=== PATIENT | female | born 1965 | race Caucasian/White ===

== ENCOUNTER → 2020-02-27 11:33 | Outpatient (CLI) | payer BC, SELFPAY ==
--- NOTE | ~2020-02-27 | US_ITS ---
US abdomen complete DATE: 02/27/2020 12:17 INDICATION: Abdominal distention, reflux, belching, constipation TECHNIQUE: Real-time imaging of the abdomen, Doppler evaluation COMPARISON: 12/03/2017 abdominal ultrasound FINDINGS: No hepatic or pancreatic, splenic or renal space-occupying mass lesion is evident. No galls tones or gallbladder wall thickening or pericholecystic abnormal fluid collection. Negative sonograph ic Cuba's sign. The common bile duct measures 6 mm, which is within normal range. No renal mass lesion or hydronephrosis. IMPRESSION: Negative Reviewed, dictated and finalized at Location A. Reviewed, dictated and finalized at location B. IMPRESSION: Negative
== END ==
PROVIDERS: PCP Internal Medicine; Visit Provider Internal Medicine
DX: R14.0 Abdominal distension (gaseous) (principal)
CPT/HCPCS: 76700

== ENCOUNTER → 2020-03-03 14:52 | Outpatient (CLI) | payer BC, SELFPAY ==
--- NOTE | ~2020-03-03 | MM_ITS ---
EXAMINATION: MM screening [facility] BI w pallavi HISTORY: Screening mammogram TECHNIQUE: Craniocaudal and mediolateral oblique 3-D tomosynthesis images were obtained and synthetic 2-D images were generated. CAD analysis was submitted and interpreted. COMPARISON: 12/02/2017, 11/19/2016, 11/17/2015 BREAST PARENCHYMAL COMPOSITION: There are scattered areas of fibroglandular density. FINDINGS: There is no evidence of suspicious mass, calcification, or architectural distortion to sugg est malignancy in either breast. There has been no suspicious interval change. IMPRESSION: 1. No mammographic evidence of malignancy. 2. Recommend routine screening mammography in one year. BI-RADS Category 1: Negative Reviewed, dictated and finalized at location A.
== END ==
PROVIDERS: Visit Provider Obstetrics & Gynecology
DX: Z12.31 Encounter for screening mammogram for malignant neoplasm of breast (principal)
CPT/HCPCS: 77063; 77067

== ENCOUNTER → 2020-03-17 16:07 | Outpatient (CLI) | payer BC, SELFPAY ==
--- NOTE | ~2020-03-17 | XR_ITS ---
XR lumbar spine 2-3V 03/17/2020 16:20 Indication: Back pain Procedure: 3 views lumbar spine Comparison: 06/20/2012 Findings: Normal lumbar lordosis. Vertebral body heights are maintained. There is disc narrowing at a ll lumbar levels. There is mild facet hypertrophy at L5-S1. Pedicles intact. Sacral foramen are symme tric. Impression: 1: Mild lumbar spondylosis. Reviewed, dictated and finalized at location A. Impression: 1: Mild lumbar spondylosis.
== END ==
PROVIDERS: PCP Internal Medicine; Visit Provider Internal Medicine
DX: M47.896 Other spondylosis, lumbar region (principal)
CPT/HCPCS: 72100

== ENCOUNTER 2020-07-04 13:04 | Outpatient (CLI) | payer BC, SELFPAY ==
--- NOTE | ~2020-07-04 | CT_ITS ---
EXAMINATION: CT brain wo con EXAM DATE: 07/04/2020 14:11 INDICATION: S09.90XA - Unspecified injury of head, initial encounter. TECHNIQUE: Spiral CT of the head was performed without contrast. Axial, coronal and sagittal images were reviewed. The dose-length product (DLP) for this examination was 605.33 mGy-cm. The exposure w as tailored according to patient size, and iterative reconstruction (ASIR) was used as additional dos e reduction technique. There is no prior study for comparison. FINDINGS: There is no acute intraparenchymal hemorrhage. No evidence of intraparenchymal brain mass lesion. No evidence of acute infarction. There is no mass effect or midline shift. The ventricles are normal in size. There are no extra-axial collections. There are no acute calvarial fractures. T he orbits are unremarkable. Soft tissue is unremarkable. The visualized sinuses and mastoid air bambi ls are well aerated. IMPRESSION: 1. No acute intracranial findings. Reviewed, dictated and finalized at location B. CTICIDE MIXER
== END 2020-07-04 13:05 | disposition home or self-care (01) ==
PROVIDERS: PCP Internal Medicine; Visit Provider Physician Assistant
DX: S09.90XA Unspecified injury of head, initial encounter (principal); X58.XXXA Exposure to other specified factors, initial encounter
CPT/HCPCS: 70450

== ENCOUNTER 2020-08-19 10:20 | Outpatient (CLI) | payer BC, SELFPAY ==
--- NOTE | ~2020-08-19 | XR_ITS ---
EXAMINATION: XR hand LT 2V EXAM DATE: 08/19/2020 11:16 INDICATION: Multijoint pain. Looking for rheumatoid arthritis. TECHNIQUE: Frontal and lateral projections of the left hand. There is no prior study for comparison . FINDINGS: There is mild left hand polyarticular interphalangeal primary osteoarthritis. There is brianna re 1st carpometacarpal joint primary osteoarthritis. There are no bony erosions identified. There are no acute fractures or dislocations identified. There is no subcutaneous gas. The soft tissue is un remarkable. There are no radiopaque foreign bodies. IMPRESSION: Polyarticular left hand osteoarthritis. Reviewed, dictated and finalized at location B. CUTTER OPERATOR
--- NOTE | ~2020-08-19 | XR_ITS ---
EXAMINATION: XR knee RT 2V EXAM DATE: 08/19/2020 11:16 INDICATION: Multijoint pain. Looking for rheumatoid arthritis. TECHNIQUE: Frontal and lateral projections of the right knee. There is no prior study for compariso n. FINDINGS: There is mild right knee primary osteoarthritis. There are no acute fractures or dislocatio ns identified. There is no subcutaneous gas. The soft tissue is unremarkable. There are no radiop aque foreign bodies. No chondrocalcinosis. IMPRESSION: Mild right knee osteoarthritis. Reviewed, dictated and finalized at location B. RPRISE RESOURCE PLANNER
--- NOTE | ~2020-08-19 | XR_ITS ---
EXAMINATION: XR ankle RT 2V EXAM DATE: 08/19/2020 11:16 INDICATION: Multijoint pain. TECHNIQUE: Frontal and lateral projections of the right ankle. There is no prior study for comparis on. FINDINGS: There are no acute right ankle fractures or dislocations identified. There is no subcutane ous gas. The soft tissue is unremarkable. There are no radiopaque foreign bodies. The ankle morti se appears intact. IMPRESSION: 1. Unremarkable XR ankle RT 2V exam. Reviewed, dictated and finalized at location B. LE OPERATOR
--- NOTE | ~2020-08-19 | XR_ITS ---
EXAMINATION: XR shoulder LT min 2V EXAM DATE: 08/19/2020 11:16 INDICATION: Multijoint pain. Looking for rheumatoid arthritis. TECHNIQUE: Frontal, and axillary projections left shoulder. There is no prior study for comparison. FINDINGS: Small ossification identified between the humeral head and clavicle, probably calcific ten dinosis. There is moderate left acromioclavicular joint primary osteoarthritis. There are no acute fr actures or dislocations identified. There is no subcutaneous gas. The soft tissue is unremarkable. There are no radiopaque foreign bodies. IMPRESSION: 1. Moderate left acromioclavicular joint osteoarthritis. 2. Probable rotator cuff calcific tendinosis. Reviewed, dictated and finalized at location B. DRUMMER
--- NOTE | ~2020-08-19 | XR_ITS ---
EXAMINATION: XR foot RT 2V EXAM DATE: 08/19/2020 11:16 INDICATION: Multijoint pain. Looking for rheumatoid arthritis. TECHNIQUE: Frontal and lateral projections of the right foot. There is no prior study for compariso n. FINDINGS: There is moderate right 1st metatarsophalangeal joint primary osteoarthritis. There are no bony erosions identified. There is pes planus. There are no acute fractures or dislocations identifi ed. There is no subcutaneous gas. The soft tissue is unremarkable. There are no radiopaque foreig n bodies. IMPRESSION: 1. Moderate right 1st MTP osteoarthritis. 2. Pes planus. Reviewed, dictated and finalized at location B. C WEB DEVELOPER
--- NOTE | ~2020-08-19 | XR_ITS ---
EXAMINATION: XR wrist LT 2V EXAM DATE: 08/19/2020 11:16 INDICATION: Multijoint pain. Looking for rheumatoid arthritis. TECHNIQUE: Frontal and lateral projections of the left wrist. There is no prior study for compariso n. FINDINGS: There is severe 1st carpometacarpal joint primary osteoarthritis. There are no bony erosio ns identified. There are no acute fractures or dislocations identified. There is no subcutaneous gas . The soft tissue is unremarkable. There are no radiopaque foreign bodies. IMPRESSION: Severe left 1st CMC joint osteoarthritis. Reviewed, dictated and finalized at location B. ALLATION & MAINTENANCE EXECUTIVE
--- NOTE | ~2020-08-19 | XR_ITS ---
EXAMINATION: XR ankle LT 2V EXAM DATE: 08/19/2020 11:16 INDICATION: Multijoint pain. TECHNIQUE: Frontal and lateral projections of the left ankle. There is no prior study for compariso n. FINDINGS: There are no acute left ankle fractures or dislocations identified. There is no subcutaneo us gas. The soft tissue is unremarkable. There are no radiopaque foreign bodies. The ankle mortis e appears intact. IMPRESSION: 1. Unremarkable XR ankle LT 2V exam. Reviewed, dictated and finalized at location B. PATCHER
--- NOTE | ~2020-08-19 | XR_ITS ---
EXAMINATION: XR hip LT min 2V EXAM DATE: 08/19/2020 11:16 INDICATION: Multijoint pain. TECHNIQUE: Left hip frontal and frog-leg projections. There is no prior study for comparison. FINDINGS: There is left hip primary osteoarthritis. No radiographic evidence of avascular necrosis. T here are no acute fractures or dislocations identified. There is no subcutaneous gas. The soft tiss ue is unremarkable. There are no radiopaque foreign bodies. IMPRESSION: Mild left hip osteoarthritis. Reviewed, dictated and finalized at location B. R COATING MACHINE OPERATOR
--- NOTE | ~2020-08-19 | XR_ITS ---
EXAMINATION: XR foot LT 2V EXAM DATE: 08/19/2020 11:16 INDICATION: Multijoint pain. TECHNIQUE: Frontal and lateral projections of the left foot. There is no prior study for comparison . FINDINGS: There are no acute left foot fractures or dislocations identified. There is no subcutaneou s gas. The soft tissue is unremarkable. There are no radiopaque foreign bodies. There are no bony erosions identified. IMPRESSION: 1. Unremarkable XR foot LT 2V exam. Reviewed, dictated and finalized at location B. ISH LINGUIST
--- NOTE | ~2020-08-19 | XR_ITS ---
EXAMINATION: XR knee LT 2V EXAM DATE: 08/19/2020 11:16 INDICATION: Multijoint pain. TECHNIQUE: Frontal and lateral projections of the left knee. There is no prior study for comparison . FINDINGS: There is mild left knee primary osteoarthritis. There are no acute fractures or dislocation s identified. There is no subcutaneous gas. The soft tissue is unremarkable. There are no radiopa que foreign bodies. IMPRESSION: Mild left knee osteoarthritis. Reviewed, dictated and finalized at location B. STANT GOLF COURSE SUPERINTENDENT
--- NOTE | ~2020-08-19 | XR_ITS ---
EXAMINATION: XR wrist RT 2V EXAM DATE: 08/19/2020 11:16 INDICATION: Multiple joint pain, looking for rheumatoid arthritis. TECHNIQUE: Frontal and lateral projections of the right wrist. There are no prior studies for compar mario. FINDINGS: There are no bony erosions identified. There are no acute right wrist fractures or disloca tions identified. There is no subcutaneous gas. The soft tissue is unremarkable. There are no rad iopaque foreign bodies. There is moderate 1st carpometacarpal joint primary osteoarthritis. IMPRESSION: Moderate right 1st carpometacarpal joint osteoarthritis. Reviewed, dictated and finalized at location B. NGUAL ADMINISTRATIVE ASSISTANT
--- NOTE | ~2020-08-19 | XR_ITS ---
EXAMINATION: XR shoulder RT min 2V EXAM DATE: 08/19/2020 11:16 INDICATION: Multijoint pain. TECHNIQUE: Right shoulder frontal, axillary projections. There is no prior study for comparison. FINDINGS: There is mild to moderate right acromioclavicular joint primary osteoarthritis. There are n o acute fractures or dislocations identified. There is no subcutaneous gas. The soft tissue is unre markable. There are no radiopaque foreign bodies. IMPRESSION: Mild to moderate right acromioclavicular joint osteoarthritis. Reviewed, dictated and finalized at location B. EAR TECHNICIAN
--- NOTE | ~2020-08-19 | XR_ITS ---
EXAMINATION: XR hand RT 2V EXAM DATE: 08/19/2020 11:16 INDICATION: Multiple joint pain, looking for rheumatoid arthritis. TECHNIQUE: Frontal and lateral projections of the right hand. Comparison is made to prior examinatio n from 02/16/2018. FINDINGS: There are no bony erosions identified. There are no acute right hand fractures or dislocat ions identified. There is no subcutaneous gas. The soft tissue is unremarkable. There are no radi opaque foreign bodies. There is moderate 1st carpometacarpal joint primary osteoarthritis. There is otherwise mild polyarticular interphalangeal primary osteoarthritis. IMPRESSION: Right hand, wrist polyarticular osteoarthritis. Reviewed, dictated and finalized at location B. OR BUDGET ANALYST
--- NOTE | ~2020-08-19 | XR_ITS ---
EXAMINATION: XR hip RT min 2V EXAM DATE: 08/19/2020 11:16 INDICATION: Multijoint pain. TECHNIQUE: Right hip frontal and frog-leg projections. There is no prior study for comparison. FINDINGS: No evidence of right hip avascular necrosis. There is mild hip primary osteoarthritis. The re are no acute fractures or dislocations identified. There is no subcutaneous gas. The soft tissue is unremarkable. There are no radiopaque foreign bodies. IMPRESSION: Mild right hip osteoarthritis. Reviewed, dictated and finalized at location B. IGHTENER AND ALIGNER
[2020-08-19 11:14] LABS: Erythrocyte Sedimentation Rate 4 mm/hr (0-20)
[2020-08-19 11:16] LABS: Creatine Kinase 98 U/L (30-135); Magnesium 2.4 mg/dL (1.6-2.3)
[2020-08-20 11:01] LABS: CRP < 0.5 mg/dL (<1.0)
[2020-08-23 11:41] LABS: Anti Cyclic Citrullinated Pept <16 Units (<20)
== END 2020-08-19 10:21 | disposition home or self-care (01) ==
LOC: ANHLAB 10:22
PROVIDERS: PCP Internal Medicine; Visit Provider Internal Medicine Rheumatology
DX: D50.9 Iron deficiency anemia, unspecified (principal); R53.83 Other fatigue; M19.90 Unspecified osteoarthritis, unspecified site; M79.10 Myalgia, unspecified site; E83.42 Hypomagnesemia; M19.012 Primary osteoarthritis, left shoulder; M19.011 Primary osteoarthritis, right shoulder; M16.0 Bilateral primary osteoarthritis of hip; M17.0 Bilateral primary osteoarthritis of knee; M19.071 Primary osteoarthritis, right ankle and foot; M21.41 Flat foot [pes planus] (acquired), right foot; M19.042 Primary osteoarthritis, left hand; M19.032 Primary osteoarthritis, left wrist; M19.031 Primary osteoarthritis, right wrist
CPT/HCPCS: 36415; 73030; 73100; 73120; 73502; 73560; 73600; 73620; 82550; 82728; 83520; 83735; 84550; 85652; 86140; 86200

== ENCOUNTER → 2021-01-22 10:22 | Outpatient (CLI) | payer OTHER, SELFPAY ==
--- NOTE | ~2021-01-22 | US_ITS ---
EXAMINATION: US abdomen complete DATE: 01/22/2021 11:11 INDICATION: Abdominal distention. TECHNIQUE: Multiple grayscale and Doppler ultrasound images of the abdomen were obtained. COMPARISON: Ultrasound abdomen 02/27/2020 FINDINGS: The visualized portions of the head, body, and tail of the pancreas are normal. Abdominal a rosi is normal in caliber. Inferior vena cava is normal. The liver is normal without focal lesion. No liver surface nodularity. There is normal flow in main portal vein. The gallbladder is normal in siz e. No gallstones or gallbladder wall thickening. There is no sonographic Cuba sign. The common duct is normal and measures 5 mm. The kidneys are normal in size. The spleen is normal in size. IMPRESSION: 1. Normal complete abdomen ultrasound. Reviewed, dictated and finalized at location A.
== END ==
PROVIDERS: PCP Internal Medicine; Visit Provider Internal Medicine Gastroenterology
DX: R14.0 Abdominal distension (gaseous) (principal)
CPT/HCPCS: 76700

== ENCOUNTER → 2021-02-19 15:09 | Outpatient (CLI) | payer OTHER, SELFPAY ==
--- NOTE | ~2021-02-19 | MM_ITS ---
EXAMINATION: MM screening [facility] BI w pallavi HISTORY: Screening TECHNIQUE: Craniocaudal and mediolateral oblique 3-D tomosynthesis images were obtained and synthetic 2-D images were generated. CAD analysis was submitted and interpreted. COMPARISON: Comparison to multiple prior studies sequentially, with oldest reviewed study dated 09/2014. BREAST PARENCHYMAL COMPOSITION: There are scattered areas of fibroglandular density. FINDINGS: There is no evidence of suspicious mass, calcification, or architectural distortion to sugg est malignancy in either breast. There has been no suspicious interval change. IMPRESSION: 1. No mammographic evidence of malignancy. 2. Recommend routine screening mammography in one year. BI-RADS Category 1: Negative Reviewed, dictated and finalized at location A.
== END ==
PROVIDERS: PCP Internal Medicine; Visit Provider Obstetrics & Gynecology
DX: Z12.31 Encounter for screening mammogram for malignant neoplasm of breast (principal)
CPT/HCPCS: 77063; 77067

== ENCOUNTER → 2021-04-13 14:36 | Outpatient (CLI) | payer OTHER, SELFPAY ==
--- NOTE | ~2021-04-13 | XR_ITS ---
XR_CERV2-3V_CR DATE: 04/13/2021 14:50 INDICATION: Neck pain TECHNIQUE: AP, lateral, swimmer's, open-mouth views COMPARISON: None FINDINGS: C1 and C2 are normally aligned and the odontoid process is intact. No fracture or dislocation or locked facet or prevertebral soft tissue swelling. There is moderately severe degenerative disc disease at C5-6 and C6-7. Uncovertebral joint spurring i s noted in the lower cervical spine. IMPRESSION: Moderately severe degenerative disc disease at C5-6 and C6-7 Reviewed, dictated and finalized at Location A. Reviewed, dictated and finalized at location A.
== END ==
PROVIDERS: PCP Internal Medicine; Visit Provider Internal Medicine
DX: M50.323 Other cervical disc degeneration at C6-C7 level (principal)
CPT/HCPCS: 72040

== ENCOUNTER 2021-08-25 12:37 | Outpatient (RCR) | payer OTHER, SELFPAY ==
[2021-08-25 15:33] VITALS: BP 136/90; PULSE 76; RESP 20; TEMP 36.4; O2SAT 100
[2021-08-25 15:34] VITALS: BP 136/90; PULSE 76; RESP 20; TEMP 36.4; O2SAT 100
[2021-08-25] MEDS: diphenhydrAMINE HCl CAP 25 MG CAPSULE PO (15:37)
[2021-08-25] MEDS: FAMOTIDINE 20 MG TABLET PO (15:37)
[2021-08-25 16:29] VITALS: BP 139/78
== END 2021-08-25 17:00 ==
LOC: AMCINF 12:37
PROVIDERS: PCP Internal Medicine; Referring Provider Internal Medicine; Visit Provider Internal Medicine Hematology & Oncology
DX: U07.1 COVID-19 (principal)
CPT/HCPCS: A9270; M0243; Q0244

== ENCOUNTER 2022-10-30 09:14 | Emergency (ER) | payer OTHER, SELFPAY ==
[2022-10-30 09:36] VITALS: BP 119/70; PULSE 80; RESP 16; TEMP 36.2; O2SAT 100
--- NOTE | 2022-10-30 10:06 | ED.GENADULT ---
HPI - General Adult General Chief complaint: Upper Respiratory Infection Stated complaint: sorethroat Time Seen by Provider: 10/30/22 10:06 Source: patient Mode of arrival: ambulatory Limitations: no limitations History of Present Illness HPI narrative: 57-year-old female patient presents to the [facility] with complaints of sore throat and dental pain. Patient states that she does have a an abscess to to the left lower area that she was treated with clindamycin on and from October 06 to October 18. Patient does have an appointment with oral surgeon on November 15. Patient states she does have a script for additional clindamycin but wanted to come and get checked out today because she did want have to do another course of antibiotics. patient states she started having sore throat yesterday and thought she saw some white patches to the back of the throat. Patient states she has had some chills but denies fevers, abdominal pain, nausea, vomiting or diarrhea. Denies any headaches. Related Data Allergies Allergy/AdvReac Type Severity Reaction Status Date / Time amoxicillin AdvReac Mild Hives Verified 10/30/22 09:48 diphenhydramine AdvReac Mild Hives Verified 10/30/22 09:48 [From Benadryl] lidocaine AdvReac Mild rash Verified 10/30/22 09:48 Review of Systems Review of Systems: CONSTITUTIONAL: Denies fever, chills, or sweats. Positive body aches EYES: Denies visual changes, redness, or discharge. ENT: Denies rhinorrhea, congestion, positive sore throat, or otalgia. positive dental pain CARDIOVASCULAR: Denies chest pain, palpitations, or edema. RESPIRATORY: Denies cough or dyspnea. GASTROINTESTINAL: Denies abdominal pain, nausea, vomiting, or diarrhea. GENITOURINARY: Denies dysuria or hematuria. SKIN: Denies rash or itching. MUSCULOSKELETAL: Denies back pain, joint pain, or myalgia. NEUROLOGIC: Denies headache, numbness, or weakness. PSYCHIATRIC: Denies anxiety or depression. [facility] Past Medical History Medical History Bilateral hand pain Generalized osteoarthritis of multiple sites (~2016) Hypothyroidism Family History Family History Mother Family history of diabetes mellitus in first degree relative Family history of malignant neoplasm of ovary Family history of thyroid disease Family history of osteoporosis, Onset Age: 75 Family history of arthritis, Onset Age: 75 Patient's mother is Diabetes mellitus, Onset Age: 75 Sibling Family history of diabetes mellitus in first degree relative Family history of malignant neoplasm of ovary Family history of thyroid disease Family history of mental disorder Depression Family history of migraine headaches Family history of hepatitis Family history of arthritis Patient's sister is , Onset Age: 59 Father Family history of coronary artery disease Family history of thyroid disease Family history of cataracts Family history of heart disease in male family member before age 55 Family history of cardiovascular disease Social History Social History Smoking status: Never smoker Second hand tobacco smoke exposure: No Alcohol intake: never Substance use: never Lack of Transportation: No Lack of Food: Never True Current Housing: I Have Housing Concerned About Future Housing: No Difficulty Paying Gas/Electric Bills: No Difficulty Paying for Meds: No Currently Unemployed: No Education: Master's Degree or Higher Difficulty w/ Childcare or Family Care: Decline to Answer Living arrangements: alone Spiritual care concerns: No Comments At the time of my signature I agree with nursing past medical history, surgical, social, and family history. There is no relevant family history pertinent to the presenting complaint. Exam Narrative: GENERAL: Well-a
== END 2022-10-30 10:24 | disposition home or self-care (01) ==
PROVIDERS: Emergency Provider Nurse Practitioner Family; PCP Internal Medicine
DX: J02.9 Acute pharyngitis, unspecified (principal); K04.7 Periapical abscess without sinus; E03.9 Hypothyroidism, unspecified; M15.9 Polyosteoarthritis, unspecified
CPT/HCPCS: 87081; 87880; 99213; G0463

== ENCOUNTER 2023-11-28 07:44 | Outpatient (CLI) | payer OTHER, SELFPAY ==
--- NOTE | ~2023-11-28 | US_ITS ---
EXAMINATION: US soft tissue abdomen DATE: 11/28/2023 08:14 INDICATION: Generalized enlarged lymph nodes. TECHNIQUE: Multiple grayscale and Doppler ultrasound images of the abdomen were obtained. COMPARISON: None FINDINGS: In the right abdomen in the patient's area of concern, there is no abnormal mass. In the le ft abdomen in the patient's area of concern, there is a 12 mm subcutaneous mass that is slightly hype rechoic to other subcutaneous fat with similar echotexture. IMPRESSION: 1. No abnormal mass in the right abdomen in the patient's cancer. 2. 12 mm subcutaneous mass in left abdomen in the patient's area of concern, likely inflammation or a lipoma. Reviewed, dictated and finalized at location A. IMPRESSION: 1. No abnormal mass in the right abdomen in the patient's cancer. 2. 12 mm subcutaneous mass in left abdomen in the patient's area of concern, li kulwant inflammation or a lipoma.
== END 2023-11-28 07:45 ==
LOC: MICIMG 07:45
PROVIDERS: PCP Internal Medicine; Visit Provider Physician Assistant
DX: R19.02 Left upper quadrant abdominal swelling, mass and lump (principal)
CPT/HCPCS: 76705

== ENCOUNTER 2024-09-26 10:13 | Outpatient (CLI) | payer OTHER, SELFPAY ==
--- OUTSIDE RECORDS SUMMARY | 2024-09-26 11:19 | XMS_ITS | Referral Summary ---
Author Organization [facility] [address] Address [address] [place] [address] Care Team Providers Care Training Development Director Name Role Phone Grant Dickson MD Primary Care Provider [phone] Allergies Active Allergy Reactions Criticality Noted Date Comments Amoxicillin Rash Medium 06/08/2022 Diphenhydramine Rash Medium 06/08/2022 Medications cyclobenzaprine (FLEXERIL) 10 mg tablet TK 1 T PO HS PRF MUSCLE SPASM 06/11/2020 Active nitroglycerin (NITROSTAT) 0.4 mg SL tabletIndicatio ns:acute episode of anginal pain Place 1 tablet (0.4 mg total) under the tongue every 5 (five) minutes as needed for chest pain Max 3 doses. 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 Abnormal nuclear stress test 11/03/2017 Other chest pain 11/03/2017 Family history of premature CAD 11/03/2017 OROSCO (dyspnea on exertion) 11/03/2017 Chronic fatigue 11/03/2017 Social History Tobacco Use Types Packs/Day Years Used Date Smoking Tobacco: Never Smokeless Tobacco: Never Tobacco Cessation:Counseling Given: Not Answered Alcohol Use Standard Drinks/Week Comments No 0 (1 standard drink = 0.6 oz pur e alcohol) Personal Safety Answer Date Recorded Getting School Help Needed Not on file 08/08 Comments Unknown Sex and Gender Information Value Date Recorded Sex Assigned at Not on file Legal Sex Female 3:03 PM DURABLE MEDICAL EQUIPMENT TECHNICIAN Gender Identity Not on file Sexual Orientation Not on file Last Filed Vital Signs Vital Sign Reading Time Taken Comments Blood Pressure 118/74 04/17/2024 2:44 PM CDT Pulse 75 04/17/2024 2:44 PM CDT Temperature - - Respiratory Rate - - Oxygen Saturation 96% 04/17/2024 2:44 PM CDT Inhaled Oxygen Concentration - - Weight 97.5 kg (214 lb 14.4 oz) 04/17/2024 2:44 PM CDT Height 177.8 cm (5' 10 ) 04/17/2024 2:44 PM CDT Body Mass Index 30.83 04/17/2024 2:44 PM CDT Plan of Treatment Not on file Insurance [facility] Care Teams Training Development Director Relationship Specialty Start Date End Date Grant Dickson MD [address] [address] PCP - General Internal Medicine 01/28/20
--- OUTSIDE RECORDS SUMMARY | 2024-09-26 11:19 | XMS_ITS | Clinical Summary ---
Author Organization [facility] Address [address] [place] [id number] Care Team Providers Care Salesperson Automobiles Name Role Phone None, Provider MD Primary Care Provider Unavaila ble Social History Tobacco Use Types Packs/Day Years Used Date Smoking Tobacco: Never Assessed Comments Unknown Sex and Gender Information Value Date Recorded Sex Assigned at Not on file Legal Sex Female 2:29 PM CDT Gender Identity Not on file Sexual Orientation Not on file Plan of Treatment Health Maintenance Due Date Last Done Comments Cervical Cancer Screening Pa p Smear (Age 30 to 64) Every 3 Years 1963 Colorectal Cancer Screening Colonoscopy (10 Years) 1963 Annual Physical 1966 Hepatitis C 1981 DTaP, Tdap and Td Vaccines ( 1 - Tdap) 1982 Cervical Cancer Screening Pa p with HPV Testing (Age 30 to 64) Every 5 Years 1993 Cervical Cancer Screening with HPV 1993 Mammogram Screening 2003 Zoster Vaccines (1 of 2) 2013 COVID-19 Vaccine ( - 2023-2 5 season) 2024 Influenza Adult (#1) 2024 RSV Immunization or 60+ Years (1 - 1-dose 75+ series) 2038 Meningococcal B Vaccine Aged Out No l onger eligible based on patient's age to complete this topic Meningococcal Vaccine Aged Out No kayley emily eligible based on patient's age to complete this topic Pneumococcal Vaccine: Pediat rics (0 to 5 Years) and At-Risk Patients (6 to 64 Years) Aged Out No longer eligible b ased on patient's age to complete this topic RSV Immunizations Under 20 Months Aged Out No longer eligible based on patient's age to complete this topic Insurance [employer] [facility] Care Teams Salesperson Automobiles Relationship Specialty Start Date End Date None, Provider, PCP - General UNKNOWN PHYSICIAN SPECIALTY 06/01/24
--- OUTSIDE RECORDS SUMMARY | 2024-09-26 11:19 | XMS_ITS | Clinical Summary ---
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 Family History Medical History Relation Name Comments Coronary artery disease Father Hypotension Father Ovarian cancer Mother Coronary aneurysm Sister Anay Ovarian cancer Sister Anay Relation Name Status Comments Father (Age 87) Mother (Age 75) Sister Anay (Age 59) Social History Tobacco Use Types Packs/Day Years [...] on file Legal Sex Female 3:03 PM AGR[employer]Y INTERNS[employer]IP Gender Identity Not on file Sexual Orientation Not on file Obstetrics History Last Filed Vital Signs Vital Sign Reading [...] 04/17/2024 2:44 PM CDT Plan of Treatment Health Maintenance Due Date Last Done Comments Breast Cancer Screening-Mammogram 1965 Cervical Cancer Screening 1965 Colon Cancer Screening-Colonoscopy 1965 Depression Screening 1965 Hepatitis C Screening 1965 DTaP/Tdap/Td Vaccine (1 - Tdap) 1974 Hepatitis B Screening 1981 Regular Well Visit/Exam 18-64 1981 Zoster Vaccine (1 of 2) 2013 Influenza Vaccine (#1) 2024 Pneumococcal vaccine <65 Aged Out No longer eligible based on patient's age to complete this topic [facility] Care Teams Hydrogen Plant Operator Relationship Specialty Start Date End Date Grant Dickson MD [address] [id number] PCP - General Internal Medicine 01/28/20
== END 2024-09-26 10:14 | disposition home or self-care (01) ==
LOC: ANHLAB 10:15
PROVIDERS: PCP Internal Medicine; Visit Provider Internal Medicine
DX: J02.9 Acute pharyngitis, unspecified (principal)
CPT/HCPCS: 87070

== ENCOUNTER 2024-10-23 09:52 | Outpatient (CLI) | payer OTHER, SELFPAY | END 2024-10-23 09:53 | disposition home or self-care (01) | LOC: ANHAUDIO 09:52 | PROVIDERS: PCP Internal Medicine; Visit Provider Otolaryngology | DX: H93.13 Tinnitus, bilateral (principal); H90.3 Sensorineural hearing loss, bilateral; H73.891 Other specified disorders of tympanic membrane, right ear; H74.8X1 Other specified disorders of right middle ear and mastoid | CPT/HCPCS: 92557; 92567 ==

== ENCOUNTER 2024-11-02 10:02 | Outpatient (CLI) | payer OTHER, SELFPAY ==
--- NOTE | ~2024-11-02 | CT_ITS ---
EXAMINATION: CT soft tissue neck wo con DATE: 11/02/2024 10:20 INDICATION: Unspecified hearing loss, bilateral. TECHNIQUE: Computed tomography (CT) of the neck was performed without intravenous contrast. Automated exposure control and iterative reconstruction technique were employed. The dose-length product was 4 21.67 mGy-cm. COMPARISON: Head CT 07/04/2020 FINDINGS: There are likely changes of ocular lens replacement surgeries. Right maxillary sinus is com pletely opacified. The temporal bones are normal, but resolution is lower with this exam than with a temporal bone CT. The mastoid air cells are normal. There are no pathologically enlarged lymph nodes. There is severe cervical spondylosis. IMPRESSION: 1. No etiology for the patient's symptoms. Reviewed, dictated and finalized at location L.
== END 2024-11-02 10:03 | disposition home or self-care (01) ==
LOC: MICIMG 10:03
PROVIDERS: PCP Internal Medicine; Visit Provider Otolaryngology
DX: R22.0 Localized swelling, mass and lump, head (principal); K14.8 Other diseases of tongue; H91.93 Unspecified hearing loss, bilateral
CPT/HCPCS: 70490

== ENCOUNTER 2024-12-14 07:46 | Outpatient (CLI) | payer OTHER, SELFPAY ==
--- OUTSIDE RECORDS SUMMARY | 2024-12-14 07:49 | XMS_ITS | Patient Health Record ---
Author Organization [facility] [employer] [place] ([address]) Address [address] [place] [address] Care Team Providers Care Highway Truck Driver Name Role Phone YessiNiteshGrant Primary Care Provider Unavailab le Ramonita Mata Unavailable [phone] [facility], Provider Unavailable Unavailab le Allergies Allergen (clinical drug ingredient) Drug/Non Drug Allergy documented on EMR Reaction Allergy Type Onset Date Status amoxicillin Amoxicillin rash as child Drug Allergy Active Benadryl Allergy rapid heart rate Drug Allergy Active Reason For Referral No Information Medications Medication SIG (Take, Route, Frequency, Duration) Notes Start Date End Date Status LORazepam 0.5 MG for 30 Act reta CETIRIZINE HYDROCHLORIDE 10 mg 1 tab(s) orally bid 06/08/2022 Active FAMOTIDINE 40 mg 1 tab(s) orally bid 06/08/2022 Active HYDROXYCHLOROQUINE 200 mg 1 tab(s) orall y once a day for 30 day(s) 06/08/2022 Active BUSPIRONE 5 mg 1 tab(s) orally 2 times a day for 30 day(s) 06/08/2022 Not-Taking Cetirizine HCl 10 MG 1 tab(s) orally bid Active LORAZEPAM 0.5 mg for 30 Act reta Famotidine 40 MG 1 tab(s) orally bid 06/08/2022 Active Hydroxychloroquine Sulfate 200 MG 1 tab(s) orally once a day for 30 day(s) 06/08/2022 Active busPIRone HCl 5 MG 1 tab(s) orally 2 times a day for 30 day(s) 06/08/2022 Not-Taking Social History Tobacco Use: Social History Observation Description Date Details (start date - stop date) Never Smoker NA - NA Smoking Smart Form: Question Answer Notes Are you a: never smoker Problems Problem Type SNOMED Code ICD Code Onset Dates Problem Status W/U Status Risk Notes Problem Allergy to penicillin (43312262) Allergy status to penicillin (Z88.0) Active confirmed Problem Anxiety disorder (130678211) Anxiety disorder, unspecified (F41.9) Active confirmed Problem Chronic rhinitis (69825053) Chronic rhinitis (J31.0) Active confirmed Problem Urticaria (07643190) Urticaria, unspecified (L50.9) Active confirmed Problem Food allergy (632649095) Allergy to other foods (Z91.018) Active confirmed Problem Allergy to bee venom (097039788) Bee allergy status (Z91.030) Active confirmed Encounters Encounter Location Date Provider Diagnosis [address] [address] 02/04/2024 Provider Messi Urticaria, unspecified L50.9 Assessments Encounter Date Diagnosis (ICD Code) Assessment Notes Treatment Notes Treatment Clinical Notes Section Notes 02/04/2024 Urticaria, unspecified (ICD-10 - L50.9) Plan Of Treatment No Information Insurance Providers Payer Name Payer Address Payer Phone Subscriber Number Group Number Insured Name Patient Relationship to Insured Coverage Start Date Coverage End Date Aetna Choice POS II [address] [place] [address] [id number] Mayra Michael Self - patient is the insured Medical (General) History Medical History History ICD Code Anxiety disorder, unspecified F41.9 Surgical History Surgery Date(Month/Year) D & C polyp removal
--- OUTSIDE RECORDS SUMMARY | 2024-12-14 07:49 | XMS_ITS | Clinical Summary ---
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
--- OUTSIDE RECORDS SUMMARY | 2024-12-14 07:49 | XMS_ITS ---
Author Organization [facility] [place] ([address]) Address [address] [place] [address] Care Team Providers Care Washing Machine Operator Name Role Phone Grant Dickson Primary Care Provider Unavailab le Ramonita Mata Unavailable [phone] ZZ-Migration, Provider Unavailable Unavailab le Allergies Allergen (clinical drug ingredient) Drug/Non Drug Allergy documented on EMR Reaction Allergy Type Onset Date Status amoxicillin Amoxicillin rash as child Drug Allergy Active Benadryl Allergy rapid heart rate Drug Allergy Active REASON FOR VISIT [facility] To [facility] Conversion Encounter Medications Medication SIG (Take, Route, Frequency, Duration) Notes Start Date End Date Status LORazepam 0.5 MG for 30 Act reta Cetirizine HCl 10 MG 1 tab(s) orally bid 2 Active Famotidine 40 MG 1 tab(s) orally bid 06/08/2022 Active Hydroxychloroquine Sulfate 200 MG 1 tab(s) orally once a day for 30 day(s) 06/08/2022 Active busPIRone HCl 5 MG 1 tab(s) orally 2 times a day for 30 day(s) 06/08/2022 Not-Taking Encounters Encounter Location Date Provider Diagnosis [facility] - [place] [address] 02/04/2024 Provider ZZ-Migration Urticaria, unspecified L50.9 Assessments Encounter Date Diagnosis (ICD Code) Assessment Notes Treatment Notes Treatment Clinical Notes Section Notes 02/04/2024 Urticaria, unspecified (ICD-10 - L50.9) Plan Of Treatment Medication Medication Name Sig Start Date Stop Date Notes Cetirizine HCl 10 MG 1 tab(s) orally bid 06/08/2022 Famotidine 40 MG 1 tab(s) orally bid 06/08/2022 Progress Notes * Mayra MICHAELDOB: 3 (59 yo F)Acc No.[id number]:02/04/2024 Patient: Mayra PARRA Provider: Lashell Sutherland :1965 A ge:58 Y S ex:Female Date:02/04/2024 Address:[address] [place], [place] [id number] Pcp:Grant Dickson Subjective: * Chief Complaints: * 1 . [facility] To [facility] Conversion Encounter. * Medical History: * Medications: T aking LORazepam 0.5 MG Tablet , Taking Hydroxychloroquine Sulfate 200 MG Tablet 1 tab(s) orally once a day , Not-Taking/PRN busPIRone HCl 5 MG Tablet 1 tab(s) orally 2 times a day * Allergies: A moxicillin: rash as child, Benadryl Allergy: rapid heart rate . Objective: * Vitals: Assessment: * Assessment: 1. U rticaria, unspecified - L50.9 (Primary) Plan: * Treatment: * Billing Information: * Visit Code: * Procedure Codes: * Electronic signature of Najma TORRES-Migration on 12/14/2024 at 07:49 AM CDT Sign off status: Pending * Provider: Lashell Sutherland Date: 02/04/2024 Generated for Jacinta velez/Cami/Ty on: 12/14/2024 07:49 AM CDT
--- OUTSIDE RECORDS SUMMARY | 2024-12-14 07:49 | XMS_ITS | Referral Summary ---
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
--- OUTSIDE RECORDS SUMMARY | 2024-12-14 07:50 | XMS_ITS | Clinical Summary ---
Author Organization [facility] Address [address] [place] [address] Care Team Providers Care Cement Breaker Name Role Phone None, Provider MD Primary [...] Screening with HPV 1993 Mammogram Screening 2003 Pneumococcal Vaccine: 50+ Ye ars (1 of 1 - PCV) 2013 Zoster Vaccines (1 of 2) 2013 COVID-19 Vaccine ( - 2023-2 5 season) 2024 RSV Immunization or 60+ Years (1 [...] age to complete this topic Insurance [facility]NA [facility] Care Teams Cement Breaker Relationship Specialty Start Date End Date None, Provider, MD PCP - General UNKNOWN PHYSICIAN SPECIALTY 06/01/24
== END 2024-12-14 07:47 | disposition home or self-care (01) ==
LOC: ANHAUDASC 07:47
PROVIDERS: PCP Internal Medicine; Visit Provider Otolaryngology
DX: H93.13 Tinnitus, bilateral (principal); H90.3 Sensorineural hearing loss, bilateral; H73.892 Other specified disorders of tympanic membrane, left ear; H74.8X1 Other specified disorders of right middle ear and mastoid; H74.11 Adhesive right middle ear disease; R42 Dizziness and giddiness; R22.0 Localized swelling, mass and lump, head; K14.8 Other diseases of tongue
CPT/HCPCS: 92557; 92567

== ENCOUNTER 2024-12-26 10:43 | Outpatient (CLI) | payer OTHER, SELFPAY ==
--- NOTE | ~2024-12-26 | CT_ITS ---
CT sinus wo con Ordering provider: Dave Reed MD History: . J32.9 - Chronic sinusitis, unspecified . Comparison: None. Technique: Thin slice Scans CT of the paranasal sinuses was performed with coronal and sagittal refor matted images. No IV contrast. . Automated exposure control and iterative reconstruction technique w ere employed. The dose-length product was 277.35 mGy-cm. Findings: NASAL SEPTUM: midline. OSTEOMEATAL UNITS: Patent on the left side. Obliterated on the right side. NASAL TURBINATES AND NASOPHARYNX: Normal. PARANASAL SINUSES: right maxillary sinus disease. VISUALIZED MASTOIDS: Normal as visualized. BONES: Normal. SUPERFICIAL SOFT TISSUES/VISUALIZED BRAIN PARENCHYMA: Normal. IMPRESSION: Right maxillary sinus disease. Obliterated right ostiomeatal complex. Reviewed, dictated and finalized at location A.
== END 2024-12-26 10:44 | disposition home or self-care (01) ==
LOC: MICIMG 10:43
PROVIDERS: PCP Internal Medicine; Visit Provider Otolaryngology
DX: J32.0 Chronic maxillary sinusitis (principal)
CPT/HCPCS: 70486

== ENCOUNTER 2025-01-28 01:31 | Day surgery (SDC) | payer OTHER, SELFPAY ==
[2025-01-21 15:26] VITALS: BMI 30.3
--- NOTE | 2025-01-21 15:40 | PC.NURSE ---
Report to the Outpatient Waiting Room, entrance under the green pavilion located off [facility], at time ___06:30am____ on date _01/28/25 . Planned Procedure Time: __08:30am .? Time changes happen often and if your time is changed the preop area will call you the afternoon before. - You and your visitor will be asked to self-screen and do not enter if you have any COVID symptoms. Please call surgeon if you need to reschedule. - A mask is optional within the hospital at this time. Patients may have clear liquids (water, carbonated beverages, clear teas, apple juice) until 3 hours prior to surgery with a maximum of 20 ounces. - No food from midnight until time of surgery and no smoking, or chewing tobacco (or any form of nicotine). No chewing gum, candy or mints. (05:30AM) Take only the following medications with a SIP of water on the morning of surgery: ___Meclizine if needed DO NOT STOP ANY OF YOUR OTHER PRESCRIPTION MEDICATIONS PRIOR TO SURGERY EXCEPT THE FOLLOWING Hold all vitamins and supplements for 3 days per anesthesiologist. Date to last dose is 01/24/25 Medications to discontinue per physician __None Date to take last dose None Please no make-up, nail ecuadorean, hairspray, perfume, deodorant, or body powder the day of surgery.? No jewelry (including any body piercings) or valuables the day of surgery, leave them at home.? Please take a shower or bath the night before, or the morning of, surgery with an antibacterial soap.? Wear comfortable, loose fitting clothing.? - Jewelry must be removed prior to entering the operating room.? Rings and piercings that are not removed may be cut off. - The hospital will not accept responsibility for valuables.? - Please leave all valuables, including medications, at home the day of surgery. If you are going home after surgery, a licensed wrecker driver must drive you home.? - NO public transportation without another adult if you receive anesthesia. - We recommend that an adult stay with you for 24 hours following discharge. - We also recommend that you do not drive, make important decision, drink alcoholic beverages, or take any drugs that were not prescribed by your health care provider for at least 24 hours after your discharge time. Follow any additional instructions given to you from your surgeon. Telephone instructions given to _Patient and asked if any additional questions and then verbalized understanding. Patient advised to call surgeon office or pre surgery nurse liaison [phone] if any additional questions.
[2025-01-28] VITALS (9 sets, daily range): BP systolic 109–149; BP diastolic 68–84; PULSE 60–68; RESP 12–14; TEMP 36.3–36.9; O2SAT 100; BMI 30.7
--- OUTSIDE RECORDS SUMMARY | 2025-01-28 01:34 | XMS_ITS | Patient Health Record ---
Author Organization [facility] [employer] [place] ([address]) Address [address] [place] [address] Care Team Providers Care Inside Sales Agent Name Role Phone YessiNiteshGrant Primary Care Provider Unavailab le Ramonita Mata Unavailable [phone] ZZ-Migration, Provider Unavailable Unavailab le Allergies Allergen [...] Status Risk Notes Problem Allergy to penicillin (10381972) Allergy status to penicillin (Z88.0) Active confirmed Problem Anxiety disorder (456516328) Anxiety disorder, unspecified (F41.9) Active confirmed Problem Chronic rhinitis (96221210) Chronic rhinitis (J31.0) Active confirmed Problem Urticaria (57999430) Urticaria, unspecified (L50.9) Active confirmed Problem Food allergy (490256944) Allergy to other foods (Z91.018) Active confirmed Problem Allergy to bee venom (937333327) Bee allergy status (Z91.030) Active confirmed Encounters Encounter Location Date Provider Diagnosis [address] [address] 02/04/2024 Provider Messi Urticaria, unspecified L50.9 Assessments Encounter Date Diagnosis (ICD Code) Assessment Notes Treatment Notes Treatment Clinical Notes Section Notes 02/04/2024 Urticaria, unspecified (ICD-10 - L50.9) Plan Of Treatment No Information Insurance Providers Payer Name Payer Address Payer Phone Subscriber Number Group Number Insured Name Patient Relationship to Insured Coverage Start Date Coverage End Date Aetna Choice POS II [address] [place] [address] [id number] Mayra Michael Self - patient is the insured Medical (General) History Medical History History ICD Code Anxiety disorder, unspecified F41.9 Surgical History Surgery Date(Month/Year) D & C polyp removal
--- OUTSIDE RECORDS SUMMARY | 2025-01-28 01:34 | XMS_ITS ---
Author Organization Replaced By [facility] [place] ([address]) Address [address] [place] [address] Care Team Providers Care Painter Mirror Name Role Phone Grant Dickson Primary Care Provider Unavailab le Ramonita Mata Unavailable [phone] [employer]-Migration, Provider Unavailable Unavailab le Allergies Allergen (clinical drug ingredient) Drug/Non Drug Allergy documented on EMR Reaction Allergy Type Onset Date Status amoxicillin Amoxicillin rash as child Drug Allergy Active Benadryl Allergy rapid heart rate Drug Allergy Active REASON FOR VISIT [facility] To [facility] Conversion Encounter Medications Medication SIG (Take, [...] Encounter Location Date Provider Diagnosis [facility] [place] [address] 02/04/2024 Provider ZZ-Migration Urticaria, unspecified L50.9 Assessments [...] * Mayra MICHAELDOB: 3 (59 yo F)Acc No.[id number]:02/04/2024 Patient: Mayra PARRA Provider: Lashell Sutherland :1965 A ge:58 Y S ex:Female Date:02/04/2024 Address:[address] [place], [place] [id number] Pcp:Grant Dickson Subjective: * Chief Complaints: * 1 . [facility] To [facility] Conversion Encounter. * Medical History: * [...] * Electronic signature of Najma TORRES-Migration on 01/28/2025 at 01:33 AM CDT Sign off status: Pending * Provider: Lashell Sutherland Date: 02/04/2024 Generated for Jacinta velez/Cami/yT on: 01/28/2025 01:33 AM CDT
--- OUTSIDE RECORDS SUMMARY | 2025-01-28 01:34 | XMS_ITS | Referral Summary ---
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
--- OUTSIDE RECORDS SUMMARY | 2025-01-28 01:34 | XMS_ITS | Clinical Summary ---
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
[2025-01-28] MEDS: ACETAMINOPHEN 500 MG TABLET 1000 MG PO (06:49)
[2025-01-28] MEDS: LACTATED RINGERS 1,000 ML 30 ML IV CONT ×2 (07:00→09:40)
--- NOTE | 2025-01-28 07:00 | P.PNAN_ITS ---
Anes - Initial Pre Proc Eval Procedure: Operation Date: 01/28/25 08:30 Proposed Procedures p Image Guided Right Sided Maxillary Antrostomy - Dave Reed MD s Possible Endoscopic Assisted Septoplasty - Dave Reed MD Date/Time: 01/28/25 07:00 Surgeon: Dave Reed MD Pre Op Diagnosis: chronic sinusitis, chronic serous otitis media Patient Data Age: 59 Gender: F Height: 1.78 m Weight: 96 kg Allergies Allergy/AdvReac Type Severity Reaction Status Date / Time amoxicillin AdvReac Mild Hives Verified 01/21/25 15:23 diphenhydramine (From AdvReac Mild Hives Verified 01/21/25 15:23 Benadryl) lidocaine AdvReac Mild rash Verified 01/21/25 15:23 Home Medications ?Medication ?Instructions ?Recorded ?Confirmed ?Type meclizine 25 mg tablet 25 mg PO TID PRN vertigo #30 tabs 11/12/24 01/21/25 Rx Patient hx anesthesia problems: none Family hx anesthesia problems: none Results Review: All pre-operative results and documents have been reviewed as part of the pre- operative evaluation. [facility] Past Medical History Medical History Bilateral hand pain Generalized osteoarthritis of multiple sites (~2015) Hypothyroidism Surgical History Surgical History No pertinent past surgical history Family History Family History Mother Family history of diabetes mellitus in first degree relative Family history of malignant neoplasm of ovary Family history of thyroid disease Family history of osteoporosis, Onset Age: 75 Family history of arthritis, Onset Age: 75 Patient's mother is Diabetes mellitus, Onset Age: 75 Sibling Family history of diabetes mellitus in first degree relative Family history of malignant neoplasm of ovary Family history of thyroid disease Family history of mental disorder Depression Family history of migraine headaches Family history of hepatitis Family history of arthritis Patient's sister is , Onset Age: 59 Father Family history of coronary artery disease Family history of thyroid disease Family history of cataracts Family history of heart disease in male family member before age 55 Family history of cardiovascular disease Social History Social History Smoking status: Never smoker Second hand tobacco smoke exposure: No Alcohol intake: never Substance use: never Do You Feel Safe in your Home?: Yes Lack of Transportation: No Lack of Food: Never True Current Housing: I Have Housing Concerned About Future Housing: No Difficulty Paying Gas/Electric Bills: No Difficulty Paying for Meds: No Currently Unemployed: No Education: Master's Degree or Higher Difficulty w/ Childcare or Family Care: Decline to Answer Living arrangements: alone Spiritual care concerns: No Anes - Eval Final PreProcedure Day of Procedure 01/28/25 07:00 Patient weight: obese Lungs: clear to auscultation Airway: Mallampati scale class II Neurological: alert and oriented Last oral intake: >/= 8 hours ASA classification: II Emergent: no Anesthetic plan: proceed Anesthesia type and monitoring: general ETT and standard monitoring Results Review: All pre-operative results and documents have been reviewed as part of the pre- operative evaluation. Informed Consent: The patient's anesthetic plan and its attendant risks and benefits were discussed with the patient/family/POA. Questions were solicited and answers provided to the satisfaction of the patient/family/POA.
--- NOTE | 2025-01-28 07:17 | WPDHPUPDATE1 ---
History and Physical Update Update Date/Time: 01/28/25 07:17 History and Physical has been reviewed, including an updated exam of the patient. There are NO changes in the patient's condition. Risks, benefits, and alternatives have been discussed and questions answered. Patient agrees to proceed with procedure.
--- NOTE | 2025-01-28 08:30 | PM.IMHP ---
H&P: HPI History of Present Illness Date/Time: 01/28/25 08:30 Chief Complaint: Right sided silent sinus syndrome/disease max. See previous note. Review of Systems Review of Systems: All systems reviewed & are unremarkable except as noted in HPI and below PMFSH Past Medical History Medical History Bilateral hand pain Generalized osteoarthritis of multiple sites (~2015) Hypothyroidism Surgical History Surgical History No pertinent past surgical history Family History Family History Mother Family history of diabetes mellitus in first degree relative Family history of malignant neoplasm of ovary Family history of thyroid disease Family history of osteoporosis, Onset Age: 75 Family history of arthritis, Onset Age: 75 Patient's mother is Diabetes mellitus, Onset Age: 75 Sibling Family history of diabetes mellitus in first degree relative Family history of malignant neoplasm of ovary Family history of thyroid disease Family history of mental disorder Depression Family history of migraine headaches Family history of hepatitis Family history of arthritis Patient's sister is , Onset Age: 59 Father Family history of coronary artery disease Family history of thyroid disease Family history of cataracts Family history of heart disease in male family member before age 55 Family history of cardiovascular disease Social History Social History Smoking status: Never smoker Second hand tobacco smoke exposure: No Alcohol intake: never Substance use: never Do You Feel Safe in your Home?: Yes Lack of Transportation: No Lack of Food: Never True Current Housing: I Have Housing Concerned About Future Housing: No Difficulty Paying Gas/Electric Bills: No Difficulty Paying for Meds: No Currently Unemployed: No Education: Master's Degree or Higher Difficulty w/ Childcare or Family Care: Decline to Answer Living arrangements: alone Spiritual care concerns: No Meds Home Medications and Allergies Home Medications ?Medication ?Instructions ?Recorded ?Confirmed ?Type meclizine 25 mg tablet 25 mg PO TID PRN vertigo #30 tabs 11/12/24 01/21/25 Rx Allergies Allergy/AdvReac Type Severity Reaction Status Date / Time amoxicillin AdvReac Mild Hives Verified 01/28/25 07:50 diphenhydramine (From AdvReac Mild Hives Verified 01/28/25 07:50 Benadryl) lidocaine AdvReac Mild rash Verified 01/28/25 07:50 Vital Signs Vital Signs - 24 hr 01/28/25 06:30 Temperature 36.9 C Pulse Rate 64 Respiratory Rate 14 Blood Pressure 137/68 Pulse Oximetry 100 Oxygen Delivery Room Air Exam Narrative: Normal, see previous note. Assessment and Plan Assessment and plan (1) Chronic sinusitis: Code(s): J32.9 - Chronic sinusitis, unspecified Status: Acute Assessment and Plan: See previous documentation. Right max ess, possible septo. (2) Silent sinus syndrome: Code(s): J34.89 - Other specified disorders of nose and nasal sinuses Status: Acute
[2025-01-28] MEDS: OXYMETAZOLINE HCL 0.05% NAS 15 ML BTL (*BKC) 1 SPRAY NASAL (08:54)
[2025-01-28] MEDS: ceFAZolin 2 GM/D5W 50 ML 2 GM/50 ML BAG IVPB (08:55)
--- NOTE | 2025-01-28 09:53 | P.OP_ITS ---
Procedure Note - Detailed Date of Procedure 01/28/25 Pre-op Diagnosis chronic sinusitis, chronic serous otitis media Post-op Diagnosis Same Procedure Performed Right-sided image guided endoscopic maxillary antrostomy with tissue removed meenu fl[place]. Surgeon Dave Reed MD Anesthesia General Indications See above Findings Incredibly foot sunken and right max likely as able to peel it out did not need to do the septoplasty. In touch of edematous polypoid tissue cleaned out of the maxillary sinus as well. Description of Procedure Patient identified consent verified the preoperative holding area. Patient was brought to the operating. Time-out performed. General anesthesia was induced and endotracheal tube secured airway. Patient prepped draped position procedure confirmed 2nd time-out performed image guidance initiated. 0 degree endoscope utilized large swell body was able to medialized the right turbinate and performed the procedure. Double ball tip probe was utilized to get into the sinus posteriorly I worked my way anteriorly was able to get the uncinate out of the sinus itself and remove it with combination of backbiter straight through cut microdebrider which was also image guided no damage to orbit lacrimal system septum turbinate. A lot of thick edematous tissue was also removed with microdebrider so there was tissue removal. Wound was then copiously irrigated with sterile normal warm saline about 500 cc. Bleeding was minimal about 15 cc. I performed all dictated portions procedure no complications care the patient back to Anesthesiology. Patient taken to PACU. Estimated Blood Loss 15 Drains No Packing No Pathology None sent Complications No immediate complications Condition Stable Disposition PACU [facility] Billing Surgery - Charge Forward: Surgery Billing
== END 2025-01-28 11:40 | disposition home or self-care (01) ==
PROVIDERS: PCP Internal Medicine; Visit Provider Otolaryngology
PROC: (CPT 31267; principal; 2025-01-28 08:30)
DX: J32.9 Chronic sinusitis, unspecified (principal); H65.23 Chronic serous otitis media, bilateral; J33.8 Other polyp of sinus; E66.9 Obesity, unspecified; Z68.30 Body mass index [BMI] 30.0-30.9, adult
CPT/HCPCS: 31267; 61782; A9270; J0690; J1100; J2004; J2250; J2405; J2704; J3010; J7050; J7120

== ENCOUNTER 2025-08-16 13:32 | Emergency (ER) | payer OTHER, SELFPAY ==
--- NOTE | 2025-08-16 13:54 | PC.NURSE ---
Pt states she threw the chicken up that was stuck in her throat, is going to leave and f/u with her PCP. Exits in NAD
--- OUTSIDE RECORDS SUMMARY | 2025-08-16 14:05 | XMS_ITS | Clinical Summary ---
Author Organization [facility] Address [address] [place] [address] Care Team Providers Care Stenographic Court Reporter Name Role Phone None, Provider MD Primary [...] of 2) 2013 COVID-19 Vaccine ( - 2024-2 6 season) 2025 Influenza Adult (#1) 2025 RSV Immunization or 60+ Years (1 - 1-dose 75+ series) 2038 Hepatitis A Vaccines Aged Out No long er eligible based on patient's age to complete this topic Meningococcal B Vaccine Aged Out No l onger eligible based on patient's age to complete this topic Meningococcal Vaccine Aged Out No kayley emily eligible based on patient's age to complete this topic RSV Immunizations Under 20 Months Aged Out No longer eligible based on patient's age to complete this topic Insurance AETNA [facility] Care Teams Stenographic Court Reporter Relationship Specialty Start Date End Date None, Provider, PCP - General UNKNOWN PHYSICIAN SPECIALTY 06/01/24
--- OUTSIDE RECORDS SUMMARY | 2025-08-16 14:05 | XMS_ITS | Patient Health Record ---
Author Organization [facility] [employer] [place] ([address]) Address [address] [place] [address] Care Team Providers Care Spooler Operator Automatic Name Role Phone Yessi Grant Primary Care Provider Unavailab Ramonita Abbasi Unavailable [phone] Allergies Allergen (clinical drug ingredient) Drug/Non Drug Allergy documented on EMR Reaction Allergy Type Onset Date Status amoxicillin Amoxicillin rash as child Drug Allergy Active diphenhydramine Benadryl Allergy rapid heart rate Drug Allergy Active Reason For Referral No Information Medications Medication SIG (Take, Route, Frequency, Duration) Notes Start Date End Date Status LORazepam 0.5 MG ; Duration: 30 Active CETIRIZINE HYDROCHLORIDE 10 mg 1 tab(s) orally bid 06/08/2022 Active FAMOTIDINE 40 mg 1 tab(s) orally bid 06/08/2022 Active HYDROXYCHLOROQUINE 200 mg 1 tab(s) orall y once a day; Duration: 30 day(s) 06/08/2022 Active BUSPIRONE 5 mg 1 tab(s) orally 2 times a day; Duration: 30 day(s) 06/08/2022 Not-Taking Cetirizine HCl 10 MG 1 tab(s) orally bid Active LORAZEPAM 0.5 mg ; Duration: 30 Active Famotidine 40 MG 1 tab(s) orally bid 06/08/2022 Active Hydroxychloroquine Sulfate 200 MG 1 tab(s) orally once a day; Duration: 30 day(s) 06/08/2022 Active busPIRone HCl 5 MG 1 tab(s) orally 2 times a day; Duration: 30 day(s) 06/08/2022 Not-Taking Social History Tobacco Use: Social History Observation Description Date Details (start date - stop date) Never Smoker NA - NA Smoking Smart Form: Question Answer Notes Are you a: never smoker Problems Problem Type SNOMED Code ICD Code Onset Dates Problem Status W/U Status Risk Notes Problem Allergy to penicillin (74825016) Allergy status to penicillin (Z88.0) Active confirmed Problem Anxiety disorder (077385939) Anxiety disorder, unspecified (F41.9) Active confirmed Problem Chronic rhinitis (05976115) Chronic rhinitis (J31.0) Active confirmed Problem Urticaria (46631533) Urticaria, unspecified (L50.9) Active confirmed Problem Food allergy (394048831) Allergy to other foods (Z91.018) Active confirmed Problem Allergy to bee venom (392378052) Bee allergy status (Z91.030) Active confirmed Plan Of Treatment No Information Insurance Providers Payer Name Payer Address Payer Phone Subscriber Number Group Number Insured Name Patient Relationship to Insured Coverage Start Date Coverage End Date [employer] [address] [place] [address] [id number] Mayra Michael Self - patient is the insured Medical (General) History Medical History History ICD Code Anxiety disorder, unspecified F41.9 Surgical History Surgery Date(Month/Year) D & C polyp removal
--- OUTSIDE RECORDS SUMMARY | 2025-08-16 14:05 | XMS_ITS | Clinical Summary ---
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
--- OUTSIDE RECORDS SUMMARY | 2025-08-16 14:05 | XMS_ITS | Encounter Summary ---
Author Organization [facility] Address [address] [place] [address] Care Team Providers Care Corporate Counselor Name Role Phone Grant Dickson MD Primary Care Provider [phone]- [phone] Grant Dickson MD Primary Care Provider [phone]- [phone] Encounter Details Date Type Department Care Team (Late st Contact Info) Description 12/03/2017 Orders Only [facility] Health Information Management [address] [place] [address] Scanning, Provider Social History Tobacco Use Types Packs/Day Years Used Date Smoking Tobacco: Never Smokeless Tobacco: Never Alcohol Use Standard Drinks/Week Comments No 0 (1 standard drink = 0.6 oz pur e alcohol) Comments Unknown Sex and Gender Information Value Date Recorded Sex Assigned at Not on file 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 Gender Identity Not on file Sexual Orientation Not on file documented as of this encounter Plan of Treatment Not on file documented as of this encounter Procedures Procedure Name Priority Date/Time Associated Diagnosis Comments SCAN - RADIOLOGY/IMAGING 12/03/2017 documented in this encounter Results * SCAN - RADIOLOGY/IMAGING (12/03/2017) Anatomical Region Laterality Modality Other us Provider Scanning Final Result documented in this encounter Visit Diagnoses Not on filedocumented in this encounter Care Teams Corporate Counselor Relationship Specialty Start Date End Date Grant Dickson MD [address] [place] [address] PCP - General Internal Medicine 10/13/17 01/27/20 Grant Dickson MD [address] [facility] [address] [place] [address] PCP - General Internal Medicine 01/28/20 documented as of this encounter
== END 2025-08-16 13:54 | disposition left against medical advice (07) ==
PROVIDERS: PCP Internal Medicine
DX: R09.A2 Foreign body sensation, throat (principal)
CPT/HCPCS: 99199